=== PATIENT | female | born 2005 | race Caucasian/White ===

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

== ENCOUNTER 2024-05-02 21:52 | Emergency (ER) | payer OTHER | END 2024-05-02 23:28 | disposition home or self-care (01) | LOC: ERS 21:52 | DX: S93.402A Sprain of unspecified ligament of left ankle, initial encounter (principal); W10.9XXA Fall (on) (from) unspecified stairs and steps, initial encounter ==

== ENCOUNTER 2025-06-28 10:01 | Emergency (ER) | payer SELFPAY ==
[2025-06-28] MEDS ORDERED: Dexamethasone 10 MG/ML VIAL ONE (11:15)
[2025-06-28] MEDS ORDERED: Ketorolac Tromethamine 30 MG (1 mL) VIAL ONE (11:15)
[2025-06-28] MEDS ORDERED: diphenhydrAMINE 50 MG/ML VIAL ONE (11:15)
[2025-06-28] MEDS ORDERED: Metoclopramide HCl 10 MG (2 mL) VIAL ONE (11:16)
[2025-06-28 11:31] LABS: #Basophils 0.06 10x3/uL (0.0-0.2); #Eosinophils Less than 0.03 10x3/uL (0.0-0.7); #Monocytes 1.24 10x3/uL (0.11-0.59); #Neutrophils 7.58 10x3/uL (1.40-6.50); %Basophils 0.6 % (0.0-1.0); %Eosinophils 0.1 % (0.0-10.0); %Lymphocytes 14.7 % (28.0-48.0); %Monocytes 11.9 % (0.0-4.0); %Neutrophils 72.4 % (31.0-61.0); Hematocrit 41.2 % (36.0-47.0); Hemoglobin 13.7 g/dL (12.0-16.0); Mean Corpuscular Hemoglobin 29.0 pg (25.0-35.0); Mean Corpuscular Volume 87.3 fL (78.0-98.0); Platelet Count 212 10x3/uL (130-400); Red Blood Cell (RBC) Count 4.72 mill/uL (4.00-5.20); White Blood Cell (WBC) Count 10.46 10x3/uL (4.8-10.8)
[2025-06-28 11:51] LABS: ALT (SGPT) 53 U/L (Less than 34); AST (SGOT) 69 U/L (11-34); Albumin 4.2 g/dL (3.1-4.5); Alkaline Phosphatase 76 U/L (40-100); Anion Gap 15 mmol/L (10-20); BUN (Urea Nitrogen) 7 mg/dL (7.0-18.7); Bilirubin, Total 0.7 mg/dL (0.3-1.2); Calc. Creatinine Clearance 0 mL/min (70-130); Calcium 9.3 mg/dL (7.8-10.44); Carbon Dioxide 19 mmol/L (22-29); Chloride 105 mmol/L (98-107); Globulin 3.8 g/dL (2.4-3.5); Glucose 79 mg/dL (70-105); Potassium 4.2 mmol/L (3.5-5.1); Sodium 135 mmol/L (136-145)
== END 2025-06-28 12:16 | disposition home or self-care (01) ==
LOC: ERS 10:01
DX: G43.909 Migraine, unspecified, not intractable, without status migrainosus (principal); F17.290 Nicotine dependence, other tobacco product, uncomplicated; F17.210 Nicotine dependence, cigarettes, uncomplicated
CPT/HCPCS: 70450; 80053; 85025; 96374; 96375; J1100; J1200; J1885; J2765